=== PATIENT | female | born 1990 | race Caucasian/White ===

== ENCOUNTER 2018-09-23 20:58 | Emergency (ER) | payer OTHER ==
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
[2018-09-23 23:14] LABS: ABSOLUTE EOSINOPHILS # (AUTO) 0.1 10^3/uL (0.0-0.6); ABSOLUTE LYMPHOCYTES (AUTO) 3.2 10^3/uL (0.5-4.7); ABSOLUTE MONOCYTES (AUTO) 0.6 10^3/uL (0.1-1.4); ABSOLUTE NEUT (AUTO) 5.8 10^3/uL (1.7-8.2); BASOPHILS % (AUTO) 0.5 % (0-2); EOSINOPHILS % (AUTO) 1.4 % (0-6); HEMATOCRIT 38.1 % (36.0-47.0); HEMOGLOBIN 12.7 g/dL (12.0-15.5); LYMPHOCYTES % (AUTO) 32.9 % (13-45); MEAN CORPUSCULAR HEMOGLOBIN 25.5 pg (27.0-33.4); MEAN CORPUSCULAR HGB CONC 33.2 g/dL (32.0-36.0); MEAN CORPUSCULAR VOLUME 77 fl (80-97); PLATELET COUNT 246 10^3/uL (150-450); RED BLOOD COUNT 4.96 10^6/uL (3.72-5.28); RED CELL DISTRIBUTION WIDTH 13.9 % (11.5-14.0); SEGMENTED NEUTROPHILS % (AUTO) 59.2 % (42-78); TOTAL CELLS COUNTED % (AUTO) 100 %; WHITE BLOOD COUNT 9.7 10^3/uL (4.0-10.5)
--- NOTE | 2018-09-23 23:33 | RADIOLOGY REPORT (SQ) ---
EXAM DESCRIPTION: XR CHEST 1 VIEW COMPLETED DATE/TME: 09/23/2018 23:00 CLINICAL HISTORY: chest pain COMPARISON: None FINDINGS: Cardiac silhouette is within normal limits. There is no focal parenchymal or pleural disease. There is no acute osseous process visualized. IMPRESSION: No evidence of acute cardiopulmonary disease.
[2018-09-23 23:35] LABS: ALBUMIN 4.3 g/dL (3.5-5.0); ALKALINE PHOSPHATASE 44 U/L (38-126); ANION GAP 9 (5-19); ASPARTATE AMINO TRANSFERASE 32 U/L (14-36); BILIRUBIN,DIRECT 0.1 mg/dL (0.0-0.4); BILIRUBIN,TOTAL 0.3 mg/dL (0.2-1.3); BLOOD UREA NITROGEN 16 mg/dL (7-20); CALCIUM 9.5 mg/dL (8.4-10.2); CARBON DIOXIDE 24 mmol/L (22-30); CHLORIDE 105 mmol/L (98-107); GLUCOSE 92 mg/dL (75-110); POTASSIUM 3.8 mmol/L (3.6-5.0); TOTAL PROTEIN 6.8 g/dL (6.3-8.2)
[2018-09-23 23:52] LABS: FREE T4 (FREE THYROXINE) 0.8 ng/dL (0.78-2.19)
[2018-09-24 00:06] LABS: THYROID STIMULATING HORMONE 3.62 uIU/mL (0.47-4.68)
[2018-09-24] MEDS ORDERED: SUCRALFATE 1 GM TABLET PO ONE (00:53)
[2018-09-24 01:08] VITALS: BP 108/71
--- NOTE | 2018-09-24 08:02 | EKG REPORT ---
SEVERITY:- BORDERLINE ECG - SINUS RHYTHM BORDERLINE T ABNORMALITIES, ANTERIOR LEADS : Confirmed by: Morales Alaniz MD 24-Sep-2018 08:01:50
== END 2018-09-24 01:08 | disposition home or self-care (01) ==
LOC: ER 20:58
DX: R07.9 Chest pain, unspecified (principal)
CPT/HCPCS: 36415; 71045; 80053; 84439; 84443; 84484; 84703; 85025; 93005; 93010; 99281

== ENCOUNTER 2019-01-20 07:39 | Day surgery (SDC) | payer OTHER ==
[~2019-01-20 07:39] MED LIST: CEFAZOLIN 2 GM/D5W RTU 2 GM/50 ML RTUPB IV PRN; DEXAMETHASONE SOD PHOS INJ 10 MG/1 ML VIAL ONE; DEXMEDETOMIDINE INJ 80 MCG/20 ML VIAL IV ONE; FAMOTIDINE INJ/PF 20 MG/2 ML SDV IV ONE; FENTANYL CITRATE INJ/PF 100 MCG/2 ML AMPUL ONE; GLYCOPYRROLATE INJ 0.4 MG/2 ML VIAL ONE; LIDOCAINE 2% INJ-PF (100 MG/5 ML) SYRINGE ONE; MIDAZOLAM 2 MG/2 ML INJ ONE; ONDANSETRON HCL INJ/PF 4 MG/2 ML SDV ONE; PROPOFOL INJ 200 MG/20 ML VIAL IV ONE; SUCCINYLCHOLINE CHLORIDE INJ 200 MG/10 ML VIAL ONE
[2019-01-20] MEDS ORDERED: COCAINE HCL 4% TOPICAL SOLN 4 ML ONE (08:22)
[2019-01-20] MEDS ORDERED: BACITRACIN ZINC OINTMENT 15 GM ONE (08:22)
[2019-01-20] MEDS ORDERED: OXYMETAZOLINE HCL 0.05% NASAL SPRAY 15 ML BOTTLE ONE (08:22)
[2019-01-20] MEDS ORDERED: LIDOCAINE 2%/EPINEPHRINE INJ 1.7 ML CARTRIDGE ONE ×2 (08:23→08:56)
--- NOTE | 2019-01-20 10:41 | Operative Report ---
Operative Report-[facility] Operative Report: Date: 20 January 2019 History: presents with a history of nasal dyspnea. Physical exam revealed a d eviated nasal septum, bilateral nasal vestibular stenosis and inferior turbinate hypertrophy. Presents today for a septoplasty, repair bilateral nasal vestibular stenosis and turbinate reduction Pre-operative diagnosis: 1. Deviated nasal septum 2. Inferior turbinate hypertrophy 3. Bilateral nasal vestibular stenosis Post operative diagnosis: same as above. Procedure: 1. Nasal septoplasty 2. Inferior turbinate reduction, right side 3 . Inferior turbinate reduction, left side 4. Repair nasal vestibular stenosis, right side (CPT: 84676) 5. Repair nasal vestibular stenosis, left side (CPT: 61603) Surgeon: Ravi Song MD, FACS, [facility] Anesthia: JAIME Description of the procedure: After receiving informed consent, the patient was brought to the operating room and placed supine on the operating table. After successful insuction and intubation by anesthesia, cottonoids soaked with 4% cocaine replaced into each nasal cavity for approximately five minutes. They were removed andthe septum along with the inferior turbinate were injections with 2% Xylocaine with 1:100,000 epinephrine. The cottonoids were replaced. The patient was then prepped and draped in a sterile fashion. The cottonoids where then removed. A number 15 blade was used to make a dixie transfixtion incision on the left side. Next using a Shaver and then A [place] elevator, a mucoperichondrial/mucoperi osteal flap was elevated back to the sphenoid rostrum. This was then elevated onto the nasal floor. A mucoperichondrial flap was elevated around the caudal edge of the septum and onto the right side. This exposed both sides of the cartilaginous/bony septum. The osseocartilaginous junction was and a mucoperiosteal flap was elevated on the right side. Ziegler scissors were used to make horizontal cuts in the perpendicular plate of the ethmoid bone, superiorly and inferiorly. [place]elan forceps were used to remove this. A vomeroethmoid spur was identified and the mucosa was carefully dissected from it. A V-chisel was used to remove this spur. An inferior cartilage spur was removed using a D knife . The mucosa was carefully dissected around the maxillary crest spur and the spur was removed using a V osteotome. Ralls- Cole's were used to remove a high septal deflection in the area of the osteocartilaginous junction. The septum was viewed with the flaps in place and found to be relatively straight. The root of the middle turbinates were visible on both sides. The dixie transfixion incision was closed using 4-0 chromic and a 4-0 plain gut wip stitch was used to secure the septal flaps. Attention was then directed to the nasal valve area on the right, where the VGBio nasal airway remodeling system was used to repair bilateral nasal vestibular stenosis. The handpiece was placed superiorly at the caudal margin of the upper lateral cartilage and the device was activated. This was repeated 2 more times marching inferiorly towards the piriform aperture. A similar procedure was done on the left. Attention was then directed to the inferior turbinates where an inferior turbinate reduction was performed bilaterally. The Celon was used to perform an intramural cauterization bilaterally. Then each turbinate was medialized and then lateralized using a Sayer elevator . Silicon splints coated with bacitracin were placed into each nasal cavity and secured with a 2-0 prolene. Afrin soaked cottonoids were placed into each nasal cavity and secured to each other in front of the nose. The patient was then given back to anesthesia who successfully extubated them. The patient tolerated the procedure well without any complications. Estimated blood loss: 15 mL Fluids: 500 mL The patient was transferred to the post anesthesia care unit in stable condition with spontaneous respirations.
[2019-01-20] MEDS ORDERED: PROMETHAZINE HCL INJ 25 MG/1 ML VIAL ONE (11:39)
== END 2019-01-20 12:29 | disposition home or self-care (01) ==
LOC: SC 07:39
PROVIDERS: ATTEND Otolaryngology
DX: J34.2 Deviated nasal septum (principal); J34.3 Hypertrophy of nasal turbinates; J34.89 Other specified disorders of nose and nasal sinuses; Z79.899 Other long term (current) drug therapy
CPT/HCPCS: 00160; 30802; 30465; 30520; J2250; J3490 ×5; J3010; J2001; J2550; J0330; J2405; J2704; S0028; J1100; J0690; 160

== ENCOUNTER → 2019-02-12 | Outpatient (CLI) | payer OTHER | LOC: OD 09:43 | PROVIDERS: ATTEND Otolaryngology | DX: J30.9 Allergic rhinitis, unspecified (principal) | CPT/HCPCS: 36415; 82785; 86003 ==